=== PATIENT | male | born 1945 | race Caucasian/White ===

== ENCOUNTER 2016-06-13 10:35 | Inpatient (IN) | payer MEDICARE ==
[2016-06-05 14:15] LABS: HEMATOCRIT 45.1 % (40.0-51.0); HEMOGLOBIN 16.5 g/dL (13.6-17.8)
[2016-06-05 15:01] LABS: BUN (BLOOD UREA NITROGEN) 13 MG/DL (6-23); CALCIUM, SERUM 9.1 MG/DL (8.5-10.4); CHLORIDE, SERUM 105 MMOL/L (96-112); CO2 (CARBON DIOXIDE) 28 MMOL/L (24-34); CREATININE 0.86 MG/DL (0.70-1.30); GFR AFRICAN AMERICAN 101 ML/MIN (>=60); GFR NON AFRICAN AMERICAN 87 ML/MIN (>=60); GLUCOSE, SERUM 103 MG/DL (60-99); POTASSIUM, SERUM 4.1 MMOL/L (3.5-5.3); SODIUM, SERUM 141 MMOL/L (135-148)
--- NOTE | ~2016-06-13 | OP ---
Record Of Operation [facility] [address] [place]. [address] NAME: BERNABE CLIFFORD III : 43 STATUS : ADM IN PAT#: [id number] AGE: 70 ADM/REG DATE : 06/13/16 MR#: [id number] REPORT SERV DATE: 06/13/16 DICTATED BY: BERNABE SALMERON DATE: 06/13/16 REPORT STATUS : Draft TRANSCRIBED BY: MODL DATE: 06/13/16 DATE OF PROCEDURE: 06/13/2016 PREOPERATIVE DIAGNOSIS: Prostate cancer. POSTOPERATIVE DIAGNOSIS: Prostate cancer. PROCEDURE: Robotic assisted laparoscopic radical prostatectomy with right laparoscopic pelvic lymph node dissection. SURGEON: Bernabe Salmeron M.D. TANK TESTER: RODO Avilez. ANESTHESIA: General. PREOPERATIVE INDICATIONS: A 70-year-old male with a negative family history of prostate cancer and a benign biopsy history, was further evaluated with an MRI of the prostate and an MRI targeted biopsy which yielded a [place] 6 prostate cancer. This was discordant with the MRI image and the MRI was therefore repeated yielding a BI-RADS category 5. There was no evidence of T3 disease. An index lesion was noted at the right anterior apex. Repeat targeted biopsy identified a [place] 9, 4+5 prostate cancer. There was no over expression of ERG fusion and P10 suppression was intact. After reviewing his options, risks, alternatives, and benefits, and understanding that he was likely to require multimodal therapy, he elected to begin with surgical management with a robotic approach. DESCRIPTION OF PROCEDURE: Following adequate general anesthesia, the patient was placed in a modified lithotomy position, well padded, secured to the table, and placed in a steep Trendelenburg position. He was noted to be safely secured to the table and was returned to a level position where he was prepped and draped in the usual sterile fashion. A 16-[place] catheter was placed into the bladder from the operative field. A pneumoperitoneum was achieved with a Veress needle. A 12-mm port was placed in the left upper quadrant with the Optiview system. The camera was placed into the abdomen, the abdomen was inspected, and there were no abnormal findings. Under direct vision, the four robotic ports were placed as well as a left lower quadrant 5-mm port. The patient was returned to a Trendelenburg position and docked to the robot. The bladder was taken down by incising laterally along the median umbilical ligaments to the level of the vas deferens bilaterally with the electrocautery erasto. The space of Retzius was developed bluntly. Fat was dissected off the anterior surface of the prostate sharply and sent for separate pathology review in view of the anterior location of the tumor in the high grade of the tumor. The endopelvic fascia was then incised bilaterally and levator muscle swept off the lateral surface of the prostate bilaterally. The dorsal vein complex was dissected out, controlled, and divided with an endovascular FLORENTINO stapler. The bladder neck was incised at its junction with the base of the prostate with the Record Of Operation [facility] [address] [place]. [address] NAME: BERNABE CLIFFORD VICTORIA : 43 STATUS : ADM IN [facility]#: [id number] AGE: 70 ADM/REG DATE : 06/13/16 MR#: [id number] REPORT SERV DATE: 06/13/16 DICTATED BY: BERNABE SALMERON DATE: 06/13/16 REPORT STATUS : Draft TRANSCRIBED BY: BERNICE DATE: 06/13/16 electrocautery spatula. The bladder was entered and the catheter was grasped with a ProGrasp grasper and used for anterior retraction of the prostate. The posterior bladder neck was developed and incised with electrocautery spatula. A plane was bluntly developed between the posterior bladder wall and the prostate. Anterior Denonvilliers fascia was incised to expose the vas deferens and seminal vesicles. The vas deferens were dissected out bluntly and divided sharply. The ends of the vas deferens were grasped with the ProGrasp grasper for additional anterior retraction of the prostate. The seminal vesicles were dissected out bluntly, their blood supply controlled with interlocking clips and then divided sharply at their base. The bladder neck was inspected and did require some minor reconstruction with two eleuor-xm-[id number] 3-0 Vicryl sutures at the 3 and 9 o'clock position taking care to avoid the ureteral orifices. Posterior Denonvilliers fascia was incised and a plane was bluntly developed between the rectum and prostate. The levator fascia was incised bilaterally and the neurovascular bundles bluntly and sharply dissected away taking care to sacrifice the right medial portion of the bundle in view of his right-sided high-grade disease. The pedicles were controlled with interlocking clips and divided sharply with a round-tip scissors. The urethra was dissected out with the round-tip scissors. The dorsal vein complex was secured to the pubic periosteum with a keympn-jq-aelin 2-0 Monocryl suture. The urethra was then divided sharply at the prostatourethral junction. The catheter was withdrawn, the posterior urethra was divided as well as the remaining apical attachments and the prostate was freed. A right laparoscopic pelvic lymph node dissection was performed with the margins of dissection being the anterior surface of the external iliac vein, the bifurcation of the external and internal iliac artery, and the pelvic sidewall both anterior and posterior to the obturator nerve. Margins were controlled with interlocking clips and the specimen divided sharply with a round-tip scissors. The ilya specimen and prostate were placed in an EndoCatch sac and placed out of the view of the operative field. The pelvis was irrigated with sterile water and antibiotic solution carefully inspected. There was excellent hemostasis and no apparent rectal injury. Posterior Denonvilliers fascia was then reapproximated at the posterior urethral plate with a running 3-0 V-Loc suture in a Shawn stitch fashion. The urethrovesical anastomosis was then performed with a running 3-0 V-Loc suture over a 20-[place] catheter. The balloon was filled with 10 mL of sterile water. The bladder was irrigated with sterile water, and there was a watertight anastomosis. A 19-[place] drain was passed through one of the robotic ports and placed into the pelvis. The port was removed, its exit site demonstrating good hemostasis. The drain was fixed to the skin with 2-0 Prolene suture. The patient was de-docked from the robot and returned to a level position. The remaining trocars were removed under direct vision, their exit sites demonstrating good hemostasis. The periumbilical port was used to guide a transverse fascial incision to allow intact retrieval of the specimen. This was closed with six interrupted #1 Ethibond sutures. The periumbilical wound and port sites were irrigated with antibiotic solution and skin edges were reapproximated with skin clips. The drain was left to grenade suction. The catheter was left to gravity drainage. Bandages were applied and the procedure was concluded. He was awakened from his anesthesia, had tolerated it well and transferred to the recovery room in satisfactory condition. Record Of Operation [facility] [address] [address] NAME: BERNABE CLIFFORD III : 43 STATUS : ADM IN PAT#: [id number] AGE: 70 ADM/REG DATE : 06/13/16 MR#: [id number] REPORT SERV DATE: 06/13/16 DICTATED BY: BERNABE SALMERON DATE: 06/13/16 REPORT STATUS : Draft TRANSCRIBED BY: BERNICE DATE: 06/13/16 SABRA/BERNICE Bernabe Salmeron M.D. / [id number] CC: Rob Oropeza M.D.
[~2016-06-13 10:35] MED LIST: ASAB PO; CENTRUM SILVER PO; CITRUCEL500 MG PO; FOSAMAX70 MG PO; NORV5 PO; VITAMIN D2000 UNIT PO; VITC500 PO
[2016-06-13 17:37] LABS: HEMATOCRIT 42.7 % (40.0-51.0); HEMOGLOBIN 15.6 g/dL (13.6-17.8)
[2016-06-13 17:52] LABS: CREATININE 1.19 MG/DL (0.70-1.30); POTASSIUM, SERUM 4.2 MMOL/L (3.5-5.3)
== END 2016-06-14 13:27 | disposition home or self-care (01) | DRG 708 ==
LOC: SDC/OF 10:35 → 4SO 19:21
PROVIDERS: Urology
PROC: 07BC4ZX Excision of Pelvis Lymphatic, Percutaneous Endoscopic Approach, Diagnostic (ICD-10-PCS; principal; 2016-06-13 12:30)
PROC: 0VT34ZZ Resection of Bilateral Seminal Vesicles, Percutaneous Endoscopic Approach (ICD-10-PCS; principal; 2016-06-13 12:30)
PROC: 0VBQ4ZZ Excision of Bilateral Vas Deferens, Percutaneous Endoscopic Approach (ICD-10-PCS; principal; 2016-06-13 12:30)
PROC: 0VT04ZZ Resection of Prostate, Percutaneous Endoscopic Approach (ICD-10-PCS; principal; 2016-06-13 12:30)
PROC: 8E0W4CZ Robotic Assisted Procedure of Trunk Region, Percutaneous Endoscopic Approach (ICD-10-PCS; principal; 2016-06-13 12:30)
DX: C61 Malignant neoplasm of prostate (principal); I10 Essential (primary) hypertension; G47.33 Obstructive sleep apnea (adult) (pediatric)
CPT/HCPCS: 80048; 82565; 84132; 85014; 85018; 88304; 88305; 88307; 88309; 88342; 88344; 93005; A9270-GY; J0690; J1885; J2250; J2405; J2710; J2795; J3010